=== PATIENT | male | born 1955 | race African-American/Black ===

== ENCOUNTER 2018-07-06 09:12 | Emergency (ER) | payer SELFPAY ==
[~2018-07-06] VITALS: Ht 165.1 cm; Wt 69.4 kg
[2018-07-06 09:15] VITALS: BP 140/77
[2018-07-06] MEDS ORDERED: IBUP-1007 PO (09:38)
[2018-07-06] MEDS ORDERED: CYCL10TA2 PO (09:38)
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
[2018-07-06] MEDS ORDERED: KETOROLAC 60 MG/2 ML VIAL. IM ONE (09:45)
[2018-07-06] MEDS ORDERED: CYCLOBENZAPRINE 10 MG TABLET. PO ONE (09:45)
== END 2018-07-06 10:05 | disposition home or self-care (01) ==
LOC: ER 09:12
DX: S10.83XA Contusion of other specified part of neck, initial encounter (principal); Y08.89XA Assault by other specified means, initial encounter; Y93.89 Activity, other specified; Y92.481 Parking lot as the place of occurrence of the external cause; Y99.8 Other external cause status
CPT/HCPCS: 96372; 99283; J1885